=== PATIENT | female | born 2000 | race Caucasian/White ===

== ENCOUNTER 2022-02-14 16:41 | Emergency (ER) | payer BC ==
[~2022-02-14] VITALS: Ht 170.2 cm; Wt 54.0 kg
--- NOTE | 2022-02-14 17:01 | NUR ---
[email or web address], medical screening exam in progress
[2022-02-14] MEDS ORDERED: AMOX-430 PO (17:09)
--- NOTE | 2022-02-14 17:15 | NUR ---
Patient discharged to home in stable condition with brisk steady gait. Written and verbal after care instructions given to patient. Patient verbalized understanding and compliance of instructions. Stressed follow up with primary doctor or return to ER for worsening s/s.
== END 2022-02-14 17:15 | disposition home or self-care (01) ==
LOC: ER 16:45
DX: H66.92 Otitis media, unspecified, left ear (principal); F41.9 Anxiety disorder, unspecified
CPT/HCPCS: A4663